=== PATIENT | female | born 1980 | race African-American/Black ===

== ENCOUNTER → 2016-03-18 | Outpatient (CLI) | payer MEDICAID, OTHER ==
[~2016-03-18] MED LIST: PROM25SU8 PO; Z.0.NO CURRENT MEDS
== END ==
LOC: HPND 09:31
PROVIDERS: ATTEND Obstetrics & Gynecology
DX: O09.529 Supervision of elderly multigravida, unspecified trimester (principal); O99.210 Obesity complicating pregnancy, unspecified trimester; E66.01 Morbid (severe) obesity due to excess calories; Z68.41 Body mass index [BMI] 40.0-44.9, adult
CPT/HCPCS: 76816